=== PATIENT | female | born 1985 | race Caucasian/White ===

== ENCOUNTER 2018-05-21 09:51 | Inpatient (IN) | payer BC ==
[2018-05-21] MEDS ORDERED: OXYTOCIN 30 UNITS/LR 500 ML IV ×3 (10:30→22:30)
[2018-05-21] MEDS ORDERED: LIDOCAINE 1% (MPF) 30 ML INJ INJ (10:30)
[2018-05-21] MEDS ORDERED: CARBOPROST 250 MCG INJ IM ×2 (10:30→22:30)
[2018-05-21] MEDS ORDERED: IBUPROFEN 600 MG TAB PO (10:30)
[2018-05-21] MEDS ORDERED: METHYLERGONOVINE 0.2 MG INJ IM ×2 (10:30→22:30)
[2018-05-21] MEDS ORDERED: MISOPROSTOL 200 MCG TAB PR ×2 (10:30→22:30)
[2018-05-21] MEDS: LACTATED RINGER'S 1,000 ML IV (10:48)
[2018-05-21 10:59] LABS: ADD MAN DIFF? NO
[2018-05-21 11:05] LABS: WHITE BLOOD COUNT 7.9 10^3/ul (4.8-10.8)
[2018-05-21 11:05] LABS: BASOPHILS % 0.4 % (0.0-2.0); EOSINOPHILS # 0.1 10^3/ul (0.0-0.5); EOSINOPHILS % 0.8 % (0.0-7.0); HEMATOCRIT 37.4 % (37.0-47.0); HEMOGLOBIN 12.1 g/dl (12.0-16.0); LYMPHOCYTES # 1.8 10^3/ul (0.8-2.9); LYMPHOCYTES % 22.5 % (15.0-51.0); MEAN CORPUSCULAR HEMOGLOBIN 28.5 pg (29.0-33.0); MEAN CORPUSCULAR HGB CONC 32.4 g/dl (32.0-37.0); MEAN CORPUSCULAR VOLUME 88.2 fl (82.0-101.0); MEAN PLATELET VOLUME 10.2 fl (7.4-10.4); MONOCYTE # 0.5 10^3/ul (0.3-0.9); MONOCYTES % 6.5 % (0.0-11.0); NEUTROPHIL # 5.5 10^3/ul (1.6-7.5); NEUTROPHILS % 69.2 % (39.0-77.0); PLATELET COUNT 393 10^3/UL (140-415); RED BLOOD COUNT 4.24 10^6/ul (4.20-5.40); RED CELL DISTRIBUTION WIDTH 15.2 % (11.5-14.5)
[2018-05-21 11:24] LABS: INR 0.89; PROTIME 12.2 Sec (11.9-14.9)
[2018-05-21] MEDS: OXYTOCIN 30 UNITS/LR 500 ML IV ×2 (11:48→20:08)
[2018-05-21 11:52] LABS: HEPATITIS B SURFACE ANTIGEN NEGATIVE (NEGATIVE)
[2018-05-21] MEDS ORDERED: FENTAnyl 2MCG/ML-ROPIV 0.2% 100 ML (16:47)
[2018-05-21] MEDS ORDERED: FENTAnyl 2MCG/ML-ROPIV 0.2% 100 ML BAG EPI (17:30)
[2018-05-21] MEDS ORDERED: NALOXONE (0.4 MG/ML) INJ IV (17:30)
[2018-05-21 19:47] LABS: RAPID PLASMA REAGIN NONREACTIVE (NR)
[2018-05-21] MEDS: KETOROLAC 30 MG INJ IV (20:01)
[2018-05-21] MEDS ORDERED: ZOLPIDEM 5 MG TAB PO (22:30)
[2018-05-21] MEDS ORDERED: DIBUCAINE 1% 30 GM OINT TOP (22:30)
[2018-05-21] MEDS: LACTATED RINGER'S 1,000 ML IV* (22:30)
[2018-05-21] MEDS ORDERED: HYDROCODONE/APAP (5/325) TAB PO ×2 (22:30)
[2018-05-21] MEDS: CEPHALEXIN 500 MG CAP PO (23:40)
[2018-05-21] MEDS: WITCH HAZEL/GLYCERIN PAD PR (23:41)
[2018-05-21] MEDS: IBUPROFEN 600 MG TAB PO (23:41)
[2018-05-21] MEDS: BENZOCAINE 20% 56 ML SPRAY TOP (23:41)
[2018-05-21] MEDS: LANOLIN HPA 1 PKT TOP (23:42)
[2018-05-22] MEDS: CEPHALEXIN 500 MG CAP PO ×4 (05:20→23:48)
[2018-05-22] MEDS: IBUPROFEN 600 MG TAB PO ×4 (05:20→23:48)
[2018-05-22] MEDS: LACTATED RINGER'S 1,000 ML IV* ×2 (06:14→14:30)
[2018-05-22 07:21] LABS: ADD MAN DIFF? NO
[2018-05-22 07:24] LABS: WHITE BLOOD COUNT 13.5 10^3/ul (4.8-10.8)
[2018-05-22 07:24] LABS: BASOPHIL # 0.1 10^3/ul (0.0-0.1); BASOPHILS % 0.4 % (0.0-2.0); EOSINOPHILS # 0.1 10^3/ul (0.0-0.5); EOSINOPHILS % 0.7 % (0.0-7.0); HEMATOCRIT 35.6 % (37.0-47.0); HEMOGLOBIN 11.7 g/dl (12.0-16.0); LYMPHOCYTES # 2.5 10^3/ul (0.8-2.9); LYMPHOCYTES % 18.5 % (15.0-51.0); MEAN CORPUSCULAR HEMOGLOBIN 28.5 pg (29.0-33.0); MEAN CORPUSCULAR HGB CONC 32.9 g/dl (32.0-37.0); MEAN CORPUSCULAR VOLUME 86.8 fl (82.0-101.0); MEAN PLATELET VOLUME 10.2 fl (7.4-10.4); MONOCYTE # 1.1 10^3/ul (0.3-0.9); MONOCYTES % 8.4 % (0.0-11.0); NEUTROPHIL # 9.7 10^3/ul (1.6-7.5); NEUTROPHILS % 71.4 % (39.0-77.0); PLATELET COUNT 325 10^3/UL (140-415); RED CELL DISTRIBUTION WIDTH 15.2 % (11.5-14.5)
[2018-05-22] MEDS: SENNA/DOCUSATE NA (8.6MG/50MG) TAB PO ×2 (08:46→21:29)
[2018-05-22] MEDS: MAGNESIUM HYDROXIDE 30ML CUP PO ×2 (08:46→21:29)
[2018-05-23] MEDS: IBUPROFEN 600 MG TAB PO ×2 (05:49→11:43)
[2018-05-23] MEDS: CEPHALEXIN 500 MG CAP PO ×2 (05:49→11:43)
[2018-05-23] MEDS: DIPHTH/TET/ACEL PERTUSS (ADULT) 0.5 ML VIAL IM* (09:00)
[2018-05-23] MEDS: VARICELLA VACCINE LIVE/PF 1,350 UNIT/0.5 ML ML SC* (09:00)
[2018-05-23] MEDS: MEASLES,MUMPS,RUBELLA VACCINE INJ SC* (09:00)
[2018-05-23] MEDS: SENNA/DOCUSATE NA (8.6MG/50MG) TAB PO (10:17)
[2018-05-23] MEDS: MAGNESIUM HYDROXIDE 30ML CUP PO (10:18)
== END 2018-05-23 16:35 | disposition home or self-care (01) | DRG 807 ==
LOC: L-D 09:51 → PP1 21:52
PROVIDERS: Obstetrics & Gynecology
PROC: 10E0XZZ Delivery of Products of Conception, External Approach (ICD-10-PCS; principal; 2018-05-21)
PROC: 4A1HXCZ Monitoring of Products of Conception, Cardiac Rate, External Approach (ICD-10-PCS; 2018-05-21)
DX: O99.12 Other diseases of the blood and blood-forming organs and certain disorders involving the immune mechanism complicating childbirth (principal); Z37.0 Single live birth; D47.3 Essential (hemorrhagic) thrombocythemia; O69.81X0 Labor and delivery complicated by cord around neck, without compression, not applicable or unspecified; O99.02 Anemia complicating childbirth; D50.9 Iron deficiency anemia, unspecified; Z3A.40 40 weeks gestation of pregnancy
CPT/HCPCS: 62319; 76815; 76818; 85025; 85610; 85730; 86592; 86850; 86900; 86901; 87340; 90716; 99464